=== PATIENT | male | born 1980 | race African-American/Black ===

== ENCOUNTER 2018-06-28 09:48 | Inpatient (IN) | payer OTHER ==
[2018-06-28 11:29] VITALS: BP 121/85; PULSE 90; TEMP 97.7; BMI 25.5
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
[2018-06-28] MEDS ORDERED: MENTHOL/PHENOL 1 EACH UD MM PRN (13:53)
[2018-06-28] MEDS ORDERED: guaiFENesin/D-METHORPHAN HB 10 ML UNIT-DOSE CUPS PO PRN (13:53)
[2018-06-28] MEDS ORDERED: ACETAMINOPHEN 325 MG TABLET (FP) PO PRN (13:53)
[2018-06-28] MEDS ORDERED: hydrOXYzine PAMOATE 25 MG CAPSULE (FP) PO PRN (13:53)
[2018-06-28] MEDS ORDERED: LOPERAMIDE HCL 2 MG CAPSULE PO PRN (13:53)
[2018-06-28] MEDS ORDERED: MAG HYDROX/AL HYDROX/SIMETH 30 ML UNIT-DOSE CUP PO PRN (13:53)
[2018-06-28] MEDS ORDERED: P-EPHED 60MG/TRIPROLIDI 2.5MG TABLET PO PRN (13:53)
[2018-06-28] MEDS ORDERED: MAGNESIUM HYDROX 2400MG/30ML ORAL SUSPENSION 30 ML CUP PO PRN (13:53)
[2018-06-28] MEDS ORDERED: IBUPROFEN 400 MG TABLET (FP) PO PRN (13:53)
[2018-06-28] MEDS ORDERED: MAGNESIUM CITRATE 300 ML BOTTLE PO PRN (13:53)
[2018-06-28] MEDS ORDERED: TUBERCULIN PPD 5 TU/0.1ML VIAL ID ONE (14:46)
[2018-06-28 15:07] LABS: URINE APPEARANCE CLEAR; URINE BILIRUBIN NEGATIVE (<2.0 mg/dL); URINE COLOR YELLOW; URINE GLUCOSE (UA) NEGATIVE (NEGATIVE); URINE KETONE TRACE (NEGATIVE); URINE LEUK ESTERASE NEGATIVE (NEGATIVE); URINE NITRITE NEGATIVE (NEGATIVE); URINE PROTEIN NEGATIVE (NEGATIVE); URINE UROBILINOGEN NEGATIVE mg/dL (0.2-1.0)
[2018-06-28] MEDS ORDERED: MELATONIN 5 MG TABLETS PO PRN (22:00)
[2018-06-28] MEDS ORDERED: THIAMINE HCL 100 MG TABLET (FP) PO SCH (22:00)
[2018-06-29] MEDS ORDERED: PRENATAL VITAMINS W/ FOLIC ACID TABLET (FP) PO SCH (10:00)
== END 2018-06-28 23:33 | disposition short-term general hospital (02) | DRG 772 ==
LOC: YASAS 09:48 → UNDOADMIN 12:37 → Y6N 12:37 → Y5N 13:57
PROVIDERS: ADMIT Neuromusculoskeletal Medicine & OMM; ATTEND Neuromusculoskeletal Medicine & OMM
PROC: HZ42ZZZ Group Counseling for Substance Abuse Treatment, Cognitive-Behavioral (ICD-10-PCS; principal; 2018-06-28)
DX: F10.20 Alcohol dependence, uncomplicated (principal); F12.20 Cannabis dependence, uncomplicated; Z59.0 Homelessness
CPT/HCPCS: 81003

== ENCOUNTER 2018-08-06 18:19 | Inpatient (IN) | payer OTHER ==
--- NOTE | 2018-08-06 20:40 | HP ---
CIWA Score - Admission Criteria OASAS Guidelines: Admission for Medically Managed Detox: Requires at least one of the followin. CIWA greater than 12 2. Seizures within the past 24 hours 3. Delirium tremens within the past 24 hours 4. Hallucinations within the past 24 hours 5. Acute intervention needed for co occurring medical disorder 6. Acute intervention needed for co occurring psychiatric disorder 7. Severe withdrawal that cannot be handled at a lower level of care (continued vomiting, continued diarrhea, abnormal vital signs) requiring intravenous medication and/or fluids 8. Admission ROS S - HPI Chief Complaint: Here cause I use K2 and marijuana and drink. Allergies/Adverse Reactions: Allergies Allergy/AdvReac Type Severity Reaction Status Date / Time No Known Allergies Allergy Verified 06/28/18 12:33 History of Present Illness: States here for detox. Alcohol usually 7 beers a week - last drink this am. States started use @ age 12. Recently started binge drinking (4-5) drinks. Patient is homeless and lives on the street. States left fdc last week and continues to take medication. K2- everyday - $30/day - last used today. States started use at about age in 33 Marijuana - States started use at age 12. States rarely uses. Nicotine use began at age 12. Hospitalized at [facility] 06/28/18 - 07/15/18 for Schizophrenia and Cannabis use disorder- severe. Denies seizures, blackouts, overdoses. Longest length of sobriety 3 years [id number]. PMHx: Denies significant PMH. MHHx: Schizophrenia. -Takes Zyprexa and Tegretol. Denies thoughts of harming self or others. Patient here for one day, in June 2018, but states left because of a problem w/ his medication and abnormal behavioral changes, and was sent to [facility] for evaluation. Based on assessment patient is a candidate for rehab. Patient Name: Jeyson Kenny Date: 1980 Address: [address] [place] [address] Sex: Male Rx Written Rx Dispensed Drug Quantity Days Supply Prescriber Name 06/18/2018 06/18/2018 clonazepam 1 mg tablet 14 7 Gordo Garcia MD Patient Name: Jeyson Kenny Date: 1980 Address: [address] [place] [address] Sex: Male Rx Written Rx Dispensed Drug Quantity Days Supply Prescriber Name 10/13/2017 10/18/2017 clonazepam 1 mg tablet 60 30 Jesus Alberto Valdivia MD Patient Name: Jeyson Kenny Date: 1980 Address: [address] [place] [address] Sex: Male Rx Written Rx Dispensed Drug Quantity Days Supply Prescriber Name 10/08/2017 10/08/2017 clonazepam 2 mg tablet 21 7 Nelda Salazar M Exam Limitations: No Limitations - Ebola screening Have you traveled outside of the country in the last 21 days: No (N) Have you had contact with anyone from an Ebola affected area: No Have you been sick,other than usual withdrawal symptoms: No Do you have a fever: No - Review of Systems Constitutional: No Symptoms Reported EENT: reports: No Symptoms Reported, Other (Grinds teeth) Respiratory: reports: No Symptoms reported Cardiac: reports: No Symptoms Reported GI: reports: No Symptoms Reported : reports: No Symptoms Reported Musculoskeletal: reports: No Symptoms Reported Integumentary: reports: No Symptoms Reported Neuro: reports: No Symptoms reported Endocrine: reports: No Symptoms Reported Hematology: reports: No Symptoms Reported Psychiatric: reports: Judgement Intact, Orientated x3, other (Schizophrenia - Denies thoughts of harming self or others.) Patient History - Patient Medical History Hx Asthma: No Hx Chronic Obstructive Pulmonary Disease (COPD): No Hx Cardiac Disorders: No Hx Hypertension: No Hx Seizures: No Hx Diabetes: No Hx Gastrointestinal Disorders: No Hx Genitourinary Disorders: No Hx Sexually Transmitted Disorders: No Hx Renal Disease (ESRD): No Hx Depression: No Hx Suicide Attempt: No Hx Schizophrenia: No - Patient Surgical History Past Surgical History: No Hx Neurologic Surgery: Yes (head injury with open skull fracture- 2003) Hx Cataract Extraction: No Hx Cardiac Surgery: No Hx Lung Surgery: No Hx Breast Surgery: No Hx Breast Biopsy: No Hx Abdominal Surgery: No Hx Appendectomy: No Hx Cholecystectomy: No Hx Genitourinary Surgery: No Hx Section: No Hx Orthopedic Surgery: No Anesthesia Reaction: No - PPD History Previous Implant?: Yes Documented Results: Negative w/o proof Implanted On Prior [facility] Admission?: No PPD to be Administered?: Yes - Smoking Cessation Smoking history: Current every day smoker Have you smoked in the past 12 months: Yes Aproximately how many cigarettes per day: 15 Hx Chewing Tobacco Use: No Initiated information on smoking cessation: Yes 'Breaking Loose' booklet given: 08/06/18 - Substance & Tx. History Hx Alcohol Use: Yes Hx Substance Use: Yes Substance Use Type: Alcohol, Marijuana Hx Substance Use Treatment: Yes (detox) - Substances abused K2/Spice Substance route: Smoking Frequency: Daily Amount used: 20 dollars Age of first use: 33 Date of last use: 08/06/18 Marijuana/Hashish Substance route: Smoking Frequency: 1-2 times per week Amount used: 5 dollars Age of first use: 12 Date of last use: 06/22/18 Alcohol Substance route: Oral Frequency: 1-2 times per week Amount used: 4 to 5 beers Age of first use: 12 Date of last use: 08/06/18 Admission Physical Exam [facility] - Vital Signs Vital Signs: Vital Signs - 24 hr 08/06/18 19:15 Temperature 97.5 F L Pulse Rate 90 Respiratory 18 Rate Blood Pressure 113/73 - Physical General Appearance: Yes: No Apparent Distress, Nourished, Disheveled (Poor hygiene) HEENTM: Yes: EOMI, Hearing grossly Normal, Normocephalic, Normal Voice, KE, Pharynx Normal, Other (Continuous grinding of teeth.) Respiratory: Yes: Lungs Clear, Normal Breath Sounds, No Respiratory Distress Neck: Yes: No masses,lesions,Nodules, Supple Breast: Yes: Breast Exam Deferred Cardiology: Yes: Regular Rhythm, Regular Rate, S1, S2 Abdominal: Yes: Normal Bowel Sounds, Non Tender, Flat, Soft Genitourinary: Yes: Within Normal Limits Back: Yes: Normal Inspection Musculoskeletal: Yes: full range of Motion, Gait Steady (Gait steady despite a slight limp) Extremities: Yes: Normal Capillary Refill, Non-Tender, Other ((L) ankle area swelling. (L) ankle = 9.5 " (R) ankle = 9"; Peripheral pulses (+). No increased erythema. Negative Sisi's.) Neurological: Yes: oss architect II-XII NML intact, Fully Oriented, Alert, Motor Strength 5/5, Normal Response Integumentary: Yes: Normal Color, Dry (Very dry skin), Warm Lymphatic: Yes: Within Normal Limits - Diagnostic (1) Nicotine dependence, uncomplicated Current Visit: Yes Status: Chronic Qualifiers: Nicotine product type: cigarettes Qualified Code(s): F17.210 - Nicotine dependence, cigarettes, uncomplicated (2) Schizophrenia Current Visit: Yes Status: Acute Qualifiers: Schizophrenia type: unspecified Qualified Code(s): F20.9 - Schizophrenia, unspecified (3) Alcohol use disorder Current Visit: Yes Status: Chronic Comment: Mild (4) Other psychoactive substance dependence, uncomplicated Current Visit: Yes Status: Chronic Comment: K2/Spice (5) Cannabis use disorder, severe, in early remission Current Visit: No Status: Chronic (6) Poor hygiene Current Visit: Yes Status: Chronic (7) Left ankle swelling Current Visit: Yes Status: Chronic Cleared for Admission [facility] - Detox or Rehab Claeared for Rehab Admission: Yes Breathalyzer - Breathalyzer Breathalyzer: 0 Urine Drug Screen - Test Device Lot number: [id number] Expiration date: 08/02/19 - Control Is test valid?: Yes - Results Drug screen NEGATIVE: Yes Inpatient Rehab Admission - Rehab Decision to Admit Inpatient rehab admission?: Yes - Initial Determination Are CD services needed?: Yes Free of communicable disease: Yes Not in need of hospitalization: Yes - Rehab Admission Criteria Previous failed treatment: Yes Poor recovery environment: Yes Comorbidities: Yes Lacks judgement: No Patient is meeting Inpatient Rehab admission criteria:: Yes
[2018-08-06] MEDS ORDERED: guaiFENesin 200 MG/10 ML 10 ML UNIT-DOSE CUPS PO PRN (21:23)
[2018-08-06] MEDS ORDERED: hydrOXYzine PAMOATE 50 MG CAPSULE (FP) PO PRN (21:23)
[2018-08-06] MEDS ORDERED: ACETAMINOPHEN 325 MG TABLET (FP) PO PRN (21:23)
[2018-08-06] MEDS ORDERED: IBUPROFEN 400 MG TABLET (FP) PO PRN (21:23)
[2018-08-06] MEDS ORDERED: LOPERAMIDE HCL 2 MG CAPSULE PO PRN (21:23)
[2018-08-06] MEDS ORDERED: MAGNESIUM CITRATE 300 ML BOTTLE PO PRN (21:23)
[2018-08-06] MEDS ORDERED: P-EPHED 60MG/TRIPROLIDI 2.5MG TABLET PO PRN (21:23)
[2018-08-06] MEDS ORDERED: MAGNESIUM HYDROX 2400MG/30ML ORAL SUSPENSION 30 ML CUP PO PRN (21:23)
[2018-08-06] MEDS ORDERED: NICOTINE POLACRILEX 2 MG GUM BUC PRN (21:23)
[2018-08-06] MEDS ORDERED: MENTHOL/PHENOL 1 EACH UD MM PRN (21:23)
[2018-08-06] MEDS ORDERED: MELATONIN 5 MG TABLETS PO PRN (22:00)
[2018-08-06] MEDS ORDERED: TUBERCULIN PPD 5 TU/0.1ML VIAL ID ONE (22:08)
[2018-08-06] MEDS ORDERED: carBAMazepine 200 MG TABLET PO ONE (22:15)
[2018-08-06] MEDS: THIAMINE HCL 100 MG TABLET (FP) PO SCH (22:15)
[2018-08-07] MEDS: NICOTINE 14 MG/24 HOURS TOPICAL PATCH TD SCH (10:17)
[2018-08-07] MEDS: PRENATAL VITAMINS W/ FOLIC ACID TABLET (FP) PO SCH (10:18)
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
[2018-08-07] MEDS: THIAMINE HCL 100 MG TABLET (FP) PO SCH (22:25)
[2018-08-07] MEDS: OLANZapine 10 MG TABLET PO SCH (22:25)
[2018-08-07] MEDS: carBAMazepine 200 MG TABLET PO SCH (22:25)
[2018-08-08] MEDS: MAG HYDROX/AL HYDROX/SIMETH 30 ML UNIT-DOSE CUP PO PRN ×3 (02:26→23:13)
[2018-08-08 07:19] VITALS: TEMP 99.9
[2018-08-08] MEDS: NICOTINE 14 MG/24 HOURS TOPICAL PATCH TD SCH (09:45)
[2018-08-08] MEDS: carBAMazepine 200 MG TABLET PO SCH ×2 (09:46→21:53)
[2018-08-08] MEDS: PRENATAL VITAMINS W/ FOLIC ACID TABLET (FP) PO SCH (09:46)
[2018-08-08 10:13] LABS: ALBUMIN 3.7 g/dl (3.4-5.0); ALK PHOS 77 U/L (45-117); ANION GAP 12 MMOL/L (8-16); BILIRUBIN,TOTAL 0.2 mg/dL (0.2-1); BLOOD UREA NITROGEN 6 mg/dL (7-18); CALCIUM 8.8 mg/dL (8.5-10.1); CHLORIDE 103 mmol/L (98-107); CO2 21 mmol/L (21-32); GLUCOSE,RANDOM 168 mg/dL (74-106); SGOT/AST 18 U/L (15-37); SGPT/ALT 24 U/L (13-61); SODIUM 136 mmol/L (136-145); TOT PROT 7.2 g/dl (6.4-8.2)
[2018-08-08 10:24] LABS: HEMATOCRIT 41.1 % (35.4-49); HEMOGLOBIN 13.6 GM/dL (11.7-16.9); MCH 30.1 pg (25.7-33.7); MEAN CELL VOLUME 91.3 fl (80-96); MEAN PLT VOLUME 9.8 fl (7.5-11.1); PLATELET COUNT 254 K/MM3 (134-434); RDW 15.6 % (11.9-15.9); WHITE BLOOD COUNT 8.6 K/mm3 (4.0-10.0)
[2018-08-08 10:27] LABS: PH,URINE 5.5 (5.0-8.0); URINE APPEARANCE CLEAR; URINE BILIRUBIN NEGATIVE (NEGATIVE); URINE COLOR YELLOW; URINE GLUCOSE (UA) NEGATIVE (NEGATIVE); URINE KETONE NEGATIVE (NEGATIVE); URINE LEUK ESTERASE NEGATIVE (NEGATIVE); URINE NITRITE NEGATIVE (NEGATIVE); URINE PROTEIN NEGATIVE (NEGATIVE); URINE UROBILINOGEN 0.2 mg/dL (0.2-1.0)
[2018-08-08] MEDS: OLANZapine 10 MG TABLET PO SCH (21:53)
[2018-08-08] MEDS: THIAMINE HCL 100 MG TABLET (FP) PO SCH (21:53)
[2018-08-09 07:01] VITALS: BP 125/77; PULSE 82
[2018-08-09] MEDS: NICOTINE 14 MG/24 HOURS TOPICAL PATCH TD SCH (09:37)
[2018-08-09] MEDS: MAG HYDROX/AL HYDROX/SIMETH 30 ML UNIT-DOSE CUP PO PRN (09:37)
[2018-08-09] MEDS: carBAMazepine 200 MG TABLET PO SCH (09:37)
[2018-08-09] MEDS: PRENATAL VITAMINS W/ FOLIC ACID TABLET (FP) PO SCH (09:37)
--- NOTE | 2018-08-09 12:20 | PN ---
[facility] Progress Note Note: Patient is leaving against medical advice. Scripts for his medications( Carbamazepine, Olanzapine) are electronically transmitted to [facility] at [address] [place] [id number]
--- NOTE | 2018-08-09 12:30 | PN ---
[facility] Progress Note Note: DISCHARGE Patient left AMA. Patient to follow up with out patient referrals and primary care providers. Vital Signs Temperature 99.9 F H 08/08/18 07:18 Pulse Rate 82 08/09/18 07:00 Respiratory Rate 18 08/09/18 07:00 Blood Pressure 125/77 08/09/18 07:00 O2 Sat by Pulse Oximetry (%) Laboratory Last Values WBC 8.6 K/mm3 (4.0-10.0) 08/08/18 07:45 RBC 4.50 M/mm3 (4.00-5.60) 08/08/18 07:45 Hgb 13.6 GM/dL (11.7-16.9) 08/08/18 07:45 Hct 41.1 % (35.4-49) 08/08/18 07:45 MCV 91.3 fl (80-96) 08/08/18 07:45 MCH 30.1 pg (25.7-33.7) 08/08/18 07:45 MCHC 33.0 g/dl (32.0-35.9) 08/08/18 07:45 RDW 15.6 % (11.9-15.9) 08/08/18 07:45 Plt Count 254 K/MM3 (134-434) 08/08/18 07:45 MPV 9.8 fl (7.5-11.1) 08/08/18 07:45 Sodium 136 mmol/L (136-145) 08/08/18 07:45 Potassium 4.0 mmol/L (3.5-5.1) 08/08/18 07:45 Chloride 103 mmol/L (98-107) 08/08/18 07:45 Carbon Dioxide 21 mmol/L (21-32) 08/08/18 07:45 Anion Gap 12 MMOL/L (8-16) 08/08/18 07:45 BUN 6 mg/dL (7-18) L 08/08/18 07:45 Creatinine 1.0 mg/dL (0.55-1.3) 08/08/18 07:45 Creat Clearance w eGFR 84.08 (>60) 08/08/18 07:45 Random Glucose 168 mg/dL (74-106) H 08/08/18 07:45 Calcium 8.8 mg/dL (8.5-10.1) 08/08/18 07:45 Total Bilirubin 0.2 mg/dL (0.2-1) 08/08/18 07:45 AST 18 U/L (15-37) 08/08/18 07:45 ALT 24 U/L (13-61) 08/08/18 07:45 Alkaline Phosphatase 77 U/L (45-117) 08/08/18 07:45 Total Protein 7.2 g/dl (6.4-8.2) 08/08/18 07:45 Albumin 3.7 g/dl (3.4-5.0) 08/08/18 07:45 Urine Color Yellow 08/08/18 07:45 Urine Appearance Clear 08/08/18 07:45 Urine pH 5.5 (5.0-8.0) 08/08/18 07:45 Ur Specific [place] 1.018 (1.010-1.035) 08/08/18 07:45 Urine Protein Negative (NEGATIVE) 08/08/18 07:45 Urine Glucose (UA) Negative (NEGATIVE) 08/08/18 07:45 Urine Ketones Negative (NEGATIVE) 08/08/18 07:45 Urine Blood Negative (NEGATIVE) 08/08/18 07:45 Urine Nitrite Negative (NEGATIVE) 08/08/18 07:45 Urine Bilirubin Negative (NEGATIVE) 08/08/18 07:45 Urine Urobilinogen 0.2 mg/dL (0.2-1.0) 08/08/18 07:45 Ur Leukocyte Esterase Negative (NEGATIVE) 08/08/18 07:45 Carbamazepine 2.0 ug/ml (1.0-12.0) 08/08/18 07:45 (1) Nicotine dependence, uncomplicated Current Visit: Yes Status: Chronic Qualifiers: Nicotine product type: cigarettes Qualified Code(s): F17.210 - Nicotine dependence, cigarettes, uncomplicated (2) Schizophrenia Current Visit: Yes Status: Acute Qualifiers: Schizophrenia type: unspecified Qualified Code(s): F20.9 - Schizophrenia, unspecified (3) Alcohol use disorder Current Visit: Yes Status: Chronic Comment: Mild (4) Other psychoactive substance dependence, uncomplicated Current Visit: Yes Status: Chronic Comment: K2/Spice (5) Cannabis use disorder, severe, in early remission Current Visit: No Status: Chronic (6) Poor hygiene Current Visit: Yes Status: Chronic (7) Left ankle swelling Current Visit: Yes Status: Chronic
== END 2018-08-09 12:25 | disposition left against medical advice (07) | DRG 770 ==
LOC: YASAS 18:19 → Y3W 21:11
PROVIDERS: ADMIT Neuromusculoskeletal Medicine & OMM; ATTEND Neuromusculoskeletal Medicine & OMM
PROC: HZ42ZZZ Group Counseling for Substance Abuse Treatment, Cognitive-Behavioral (ICD-10-PCS; principal; 2018-08-06)
DX: F10.20 Alcohol dependence, uncomplicated (principal); F12.20 Cannabis dependence, uncomplicated; F19.20 Other psychoactive substance dependence, uncomplicated; F17.210 Nicotine dependence, cigarettes, uncomplicated; F20.9 Schizophrenia, unspecified; M25.472 Effusion, left ankle; R46.0 Very low level of personal hygiene; Z59.0 Homelessness
CPT/HCPCS: 36415; 80053; 80156; 81003; 85027